=== PATIENT | female | born 1980 | race Caucasian/White ===

== ENCOUNTER 2017-02-22 12:41 | Day surgery (SDC) | payer MEDICAID ==
[2017-02-21 15:47] LABS: HEMOGLOBIN 13.6 g/dL (12-16); MCH 30.2 pg (26.0-34.0); MCHC 33.2 g/dL (31.0-37.0); MCV 91.1 fL (80.0-100.0); MEAN PLATELET VOLUME 8.6 fL (7.4-10.4); RBC 4.5 10x6/uL (4.00-5.40); RDW 12.6 % (11.5-14.5); WBC 6.9 10x3/uL (4.8-10.8)
[~2017-02-22] VITALS: Ht 170.2 cm; Wt 99.8 kg
[~2017-02-22 12:41] MED LIST: CLARITIN 10 MG10 MG PO; GAS-X125 M1 PO; GLUCOPHAGE500 MG PO; MULTI-DAY VITAM1 TAB PO
[2017-02-22 12:42] VITALS: BP 126/83; Ht 170.2 cm; Wt 99.8 kg
[2017-02-22 14:33] LABS: CALC OSMOLALITY 276 mosm/kg (275-300); CALCIUM 8.6 mg/dL (8.5-10.1); CHLORIDE - SERUM 104 mmol/L (98-107); CREATININE - SERUM 0.7 mg/dL (0.6-1.3); GLUCOSE 89 mg/dL (74-106); POTASSIUM - SERUM 3.4 mmol/L (3.5-5.1); SODIUM 140 mmol/L (136-145); UREA NITROGEN 9 mg/dL (7-18); eGFR NON AFRICAN AMERICAN > 90 mL/min (90-120)
--- NOTE | 2017-02-22 18:25 | NUR ---
1725 BACK FROM RT [place]. DRESSING C/D/I TO RT FOOT SHOE BOOT ON. NO BLEEDING TO SITE.
--- NOTE | 2017-02-22 19:03 | NUR ---
1755 UP TO THE BATHROOM VOIDED. RT FOOT BOOT ON DRESSING C/D/I. CAPILLARY REFILL TO NAIL BEDS,USES HEEL TO WALK ON RT FOOT.
--- NOTE | 2017-02-22 19:05 | NUR ---
1830 WENT OVER DISCHARGE INSTRUCTIONS. HAS 3 SCRIPTS. TOLD TO KEEP HER FOLLOW UP APPOINTMENT AND ICE AND ELEVATE RT FOOT AND KEP BOOT ON WHEN AMBULATING. WAS GIVEN 3 SCRIPTS NORCO PHENERGAN AND IBUPROFEN.
--- NOTE | 2017-02-22 19:06 | NUR ---
183 WAITING FO RIDE ASSISTED WITH DRESSING.
--- NOTE | 2017-02-22 19:07 | NUR ---
1845 DISCHARGED TO HOME VIA W/C WITH SPOUSE.
--- NOTE | 2017-04-04 14:50 | OP ---
PATIENT NAME: ELIZABETH ALMANZA MEDICAL RECORD: [id number] :78 LOCATION:D.OPS ADMISSION DATE: SURGEON: SANJAY MARION DATE OF OPERATION: 02/22/2017 DATE OF OPERATION: 02/22/2017 SURGEON: Sanjay Marion DPM PREOPERATIVE DIAGNOSES: 1. Hallux abductovalgus, right foot. 2. Metatarsalgia, second metatarsal, right foot. POSTOPERATIVE DIAGNOSES: 1. Hallux abductovalgus, right foot. 2. Metatarsalgia, second metatarsal, right foot. PROCEDURES: 1. Candido-Chris bunionectomy, right foot. 2. Celestine osteotomy, second metatarsal, right foot. ANESTHESIA: General. HEMOSTASIS: Pneumatic ankle tourniquet inflated to 250 mmHg for 64 minutes. ESTIMATED BLOOD LOSS: Minimal. MATERIALS: One [employer] 2.5 mm cannulated screw, one compression staple and one 2.0 cannulated screw (all [employer]). INJECTABLES: 30 mL of 0.5% bupivacaine (10 cc preop and 20 cc postop). INDICATION FOR PROCEDURE: The patient has a longstanding history of pain associated with the above-mentioned deformity. I have discussed with her the risks and benefits of the procedures, complications were reviewed. Her questions were answered. She was appropriately consented for Candido-Chris bunionectomy with Celestnie osteotomy, second metatarsal, right foot. PROCEDURE IN DETAIL: The patient was brought to the operating room and placed in the operating table in supine position. A timeout was called with Dr. Marion, who identified the patient, the surgical site, and the surgery to be performed. Once appropriate anesthesia was obtained, the foot was prepped and draped in the usual aseptic manner. The pneumatic ankle tourniquet was inflated to 250 mmHg on the well-padded right ankle. Attention was directed to the dorsal aspect of the first metatarsophalangeal joint of the right foot where a 6-cm linear incision was made just medial to the extensor hallucis longus tendon. This incision was carried deep through soft tissue with care being taken to retract all vital neurovascular structures. All bleeders were cauterized along the way. The periosteum was then reflected from the head of the first metatarsal as well as the base of the proximal phalanx, thus exposing the hypertrophied medial eminence of the first metatarsal head. Utilizing a sagittal saw, all hypertrophied medial eminence was removed. OPERATIVE REPORT [id number] ELIZABETH ALMANZA Attention was directed to the first intermetatarsal space where dissection was carried plantarly. The conjoined tendon of the adductor hallucis tendon was identified and sharply transected. The fibular sesamoidal ligament was also identified and sharply transected. Attention was then redirected to the head of the first metatarsal. Utilizing a sagittal saw, a V-shaped osteotomy was created in the head of the first metatarsal, this was a through and through osteotomy with the apex oriented distally. The head of the first metatarsal was translocated laterally and impacted upon the first metatarsal head. Next, utilizing manufacture's recommended technique, one 2.5 mm screw was placed across the osteotomy and excellent compression was appreciated. Attention was then directed further to the base of the proximal phalanx where a triangular-shaped wedge of bone was removed with the apex oriented laterally. The wedge of bone was removed and the osteotomy was reduced. Next, utilizing manufacture's recommended technique, one compression staple was placed across the osteotomy. Excellent compression and bony apposition was noted with the Chris procedure. The surgical site was then irrigated with copious amounts of normal sterile saline via bulb syringe. The periosteum was then reapproximated and coapted utilizing 3-0 Vicryl. The subQ was then reapproximated and coapted utilizing 3-0 Vicryl. The skin was then reapproximated and coapted using 4-0 nylon. Celestine osteotomy, second metatarsal, right foot: Attention was directed to the second metatarsophalangeal joint where a 4-cm linear incision was made. This incision was carried deep through soft tissue with care being taken to retract all vital neurovascular structures. All bleeders were cauterized along the way. The periosteum was then reflected from the second metatarsophalangeal joint. Next, utilizing a sagittal saw, an osteotomy was created in the second metatarsal head. The osteotomy was oriented from distal dorsal to plantar proximal. The capital fragment was then shifted proximally and temporary fixation was gained via K-wire. Next, utilizing manufacture's recommended technique, one 2.0 mm cannulated screw was inserted over the K-wire. The K-wire was then removed. All remaining dorsal overhanging bone was removed with a rongeur. The surgical site was then irrigated with copious amounts of normal sterile saline via bulb syringe. The periosteum was then reapproximated and coapted using 3-0 Vicryl. The subQ was then reapproximated and coapted using 3-0 Vicryl. The skin was then reapproximated and coapted using 4-0 nylon. A dressing consisting of Xeroform, 4 x 4's, Kerlix, and Rafa bandage was applied to the right foot. The pneumatic ankle tourniquet was deflated and capillary refill time is immediate to all digits of the right foot. The patient tolerated the procedure and anesthesia well. She left the operating room with vital signs stable and capillary refill time intact. The patient will be discharged home with instructions to ice and elevate the right foot. She was dispensed a boot to help further offload the area. She has my cell phone number for any afterhours difficulties. She was provided with a prescription for [place] 7.5/325, Phenergan 25 mg, and ibuprofen 800 mg. We will follow up with her next week in the office. There were no complications with this procedure. TRANSINT:[id number] Voice Confirmation ID: [id number] DOCUMENT ID: [id number] OPERATIVE REPORT [id number] ELIZABETH ALMANZA DAVID J at 1450 CC: [id number] DICTATION DATE: 02/22/17 172 [employer] WRAPPER: 02/22/17 190 [facility] 02/22/17 [id number] [place] [address]
== END 2017-02-22 18:45 | disposition home or self-care (01) ==
LOC: D.OPS 12:41 → D.PAN 13:30 → D.OPS 13:30
PROVIDERS: Anesthesiology
DX: M20.11 Hallux valgus (acquired), right foot (principal); M77.41 Metatarsalgia, right foot; Z01.812 Encounter for preprocedural laboratory examination

== ENCOUNTER → 2020-03-01 08:00 | Outpatient (CLI) | payer MEDICAID ==
[2017-02-22 12:42] VITALS: BMI 34.5
== END | disposition home or self-care (01) ==
LOC: D.MAMMO 08:00
PROVIDERS: ATTEND Obstetrics & Gynecology
DX: Z12.31 Encounter for screening mammogram for malignant neoplasm of breast (principal)